=== PATIENT | male | born 1955 | race Caucasian/White ===

== ENCOUNTER 2016-12-14 04:26 | Inpatient (IN) | payer OTHER ==
[~2016-12-14] VITALS: Ht 177.8 cm; Wt 78.0 kg
[2016-12-14] MEDS ORDERED: ATORVASTATIN CA40 M1 PO (09:02)
[2016-12-14] MEDS ORDERED: METFORMIN HCL500 M2 PO (09:03)
[2016-12-14] MEDS ORDERED: JARDIANCE10 M1 PO (09:03)
[2016-12-14] MEDS ORDERED: VICTOZA 2-0.6 MG/0.1 INJ (09:03)
[2016-12-14] MEDS ORDERED: PROAIR HFA8.5 GM INH (09:04)
[2016-12-14] MEDS ORDERED: PLAVIX75 M1 PO (09:04)
--- NOTE | 2016-12-14 14:14 | RADIOLOGY REPORT ---
EXAMINATION: XR TIBIA AND FIBULA, LEFT CLINICAL INFORMATION: Left leg endarterectomy and arteriography performed in operating room. COMPARISON: None TECHNIQUE: Intraoperative fluoroscopic imaging of the left lower extremity was utilized and multiple spot fluoroscopy images are submitted into the electronic picture archive. Fluoroscopy time: 46.8 seconds. Dose: 646.46 mrad. FINDINGS: Please refer to the operative report of Dr. Pendleton regarding the indications for the procedures, intraoperative findings and interventions performed. IMPRESSION: Fluoroscopic imaging support was provided to the operating room.
--- NOTE | 2016-12-14 16:05 | Admission Core Measures ---
Admission Meds I reviewed the following Meds: Current Medications Sig/Jessica Start time Last Medication Dose Stop Time Status Admin Albuterol Sulfate 2 PUF Q4-6 PRN PRN 12/14 1600 AC (Ventolin) Atorvastatin Calcium 40 MG DAILY 12/15 1000 AC (Lipitor) Clopidogrel Bisulfate 75 MG DAILY 12/15 1000 AC (Plavix) Clopidogrel Bisulfate 75 MG ONCE ONE 12/14 1615 AC (Plavix) 12/14 1616 Acute Coronary Syndrome Inclusion Criteria ACS Diagnosis No Inpatient Core Measures LDL Reminder: If No, please order W/I first 24hr of stay Congestive Heart Failure Inclusion Criteria CHF Diagnosis No Cerebrovascular accident Inclusion Criteria CVA/TIA Diagnosis No Inpatient Core Measures Bedside Swallow Eval Reminder: If BSE failed, place ST order Antithrombotic Reminder: Order Antithrombotic Medication by end of day 2 Antithrombotic Reminder: Document Reason Antithrombotic Not ordered by end of day 2 AFIB/Flutter Reminder: If Present, add to problem list AFIB/Flutter Reminder: Order Anticoag Medication for pts with AFIB/Flutter Atherosclerosis Reminder: If Present, add to problem list LDL Reminder: If No, please order W/I first 24hr of stay PT Order Reminder: If No, please order Venous thromboembolism Inpatient Core Measures VTE Risk Factors: Age > 40, Surgery No [facility] VTE prophylaxis d/t No contraindications No VTE Pharm Prophylaxis d/t No contraindications Inclusion Criteria - Per Current guidelines, there needs to be overlap - treatment for the first 5 days of Warfarin therapy. - Parenteral Anticoagulation (IV or SC) needs to be - given along with Warfarin therapy. VTE Diagnosis No VTE Type NONE VTE Confirmed by (Test) NONE Problem List As ranked by this Provider includes Assessment & Plan 1. Peripheral arterial disease HOME MEDS Home Med List Albuterol Sulfate (Proair Hfa) 90 MCG HFA.AER.AD 2 PUF INH Q4-6 PRN PRN ASTHMA (Reported) Atorvastatin Calcium 40 MG TABLET 1 TAB PO DAILY CHOL (Reported) Clopidogrel Bisulfate (Plavix) 75 MG TABLET 1 TAB PO DAILY BLOOD THINNER ( Reported) Empagliflozin (Jardiance) 10 MG TABLET 1 TAB PO DAILY DIABETES (Reported) Liraglutide (Victoza 2-Dion) 0.6 MG/0.1 ML (18 MG/3 ML) PEN.INJCTR 1 INJ D DIABETES (Reported) Metformin HCl (Metformin HCl ER) 500 MG TAB.ER.24 1 TAB PO DAILY DIABETES ( Reported)
--- NOTE | 2016-12-14 16:09 | PN- Vascular Surgery ---
Subjective Subjective: Post op check Awake and alert post op No complaints at this time No pain or nausea Objective Vital Signs and I&Os Intake & Output 12/14 1600 12/14 0812/14 0000 12/13 0812/13 0000 Intake Total Output Total Balance Patient 172 lb Weight Physical Exam: vss, afebrile General: alert and oriented times three Chest: clear anteriorly bilaterally, RRR Abd: soft Ext: warm, no edema, BLE without palpable pulses but 2+ dopplerable signals at DP bilaterally, positive sensate, no calf tenderness, 5/5 JOHNNIE BLE, non dopplerable PT bilaterally Wound: L groin wound dressed, dry Assessment/Plan Assessment/Plan 61 yo male s/p left femoral endarterectomy Discussed with Dr Pendleton Restart plavix today then continue at 75mg po daily bedrest tonight - up ad paul in am Likely home in am pain management insulin sliding scale overnight - will restart oral diabetic meds in am as pt has been npo all day fu labs in am Core Measures/Miscellaneous Venous Thromboembolism VTE Risk Factors: Age > 40, Surgery VTE Contraindications: No Contraindications VTE Diagnosis: No VTE Type: NONE VTE Confirmed by (Test): NONE Beta Flaquito Is Beta Flaquito a Home Med? No Antibiotics Is Patient on Antibiotics? No
[2016-12-14] MEDS ORDERED: PERCOCET 5-3251 EACH PO (16:12)
--- NOTE | 2016-12-14 16:12 | Patient Discharge Instructions ---
Discharge Instructions General Discharge Information You were seen/treated for: peripheral artery disease You had these procedures: left femoral endarterectomy Watch for these problems: temp>101, increased redness or drainage of wounds Do not soak the wound: Yes Other wound care: Keep incision clean and dry, dry dressing change daily Diet Recommended Diet: Diabetic Activity Activity Self Limited: Yes Acute Coronary Syndrome Inclusion Criteria At DC or during hospital stay patient has or had the following: ACS DIAGNOSIS No Discharge Core Measures Meds if any: Prescribed or Continued at Discharge Meds if any: NOT Prescribed or Continued at Discharge Congestive Heart Failure Inclusion Criteria At DC or during hospital stay patient has or had the following: CHF DIAGNOSIS No Discharge Core Measures Meds if any: Prescribed or Continued at Discharge Meds if any: NOT Prescribed or Continued at Discharge Cerebrovascular accident Inclusion Criteria At DC or during hospital stay patient has or had the following: CVA/TIA Diagnosis No Discharge Core Measures Meds if any: Prescribed or Continued at Discharge Meds if any: NOT Prescribed or Continued at Discharge Venous thromboembolism Inclusion Criteria VTE Diagnosis No VTE Type NONE VTE Confirmed by (Test) NONE Discharge Core Measures - Per Current guidelines, there needs to be overlap - treatment for the first 5 days of Warfarin therapy. - If discharged on Warfarin prior to 5 days of - overlap therapy, the patient will need to be - assessed for post discharge needs including - *Post discharge parental anticoagulation - *Warfarin and/or parental anticoagulation education - *Follow up date to check INR post discharge At least 5 days overlap therapy as Inpatient No Meds if any: Prescribed or Continued at Discharge Note: Overlap Therapy is Warfarin and Anticoagulant Meds if any: NOT Prescribed or Continued at Discharge
--- NOTE | 2016-12-14 16:16 | Surgical Discharge Summary ---
Visit Information Visit Dates Admission Date: 12/14/16 Discharge Date: 12/15/16 History of Present Illness Chief Complaint: See H and P Medical History Isolation History: Standard Surgical History Pertinent Surgical History: none (see H and P) Review of Systems: See H and P Hospital Course Course Attending Physician: MAGO APONTE MD Primary Care Physician: ANNE-MARIE PARADA MD Hospital Course: Pt underwent a left femoral endarterectomy on 12/[address] Aponte and was brought to the PACU in stable condition. He remained at bedrest overnight and was able to ambulate in the morning. His pain was well controlled with oral pain medication. He was restarted on plavis on the day of surgery. He was cleared to be discharged home to follow up with DR Aponte. Allergies: Coded Allergies: No Known Allergies (12/14/16) Disposition Summary Disposition Principal Diagnosis: PAD Additional Diagnosis: IDDM Discharge Disposition: hospice - home Discharge Instructions General Discharge Information Code Status: Full Code Patient's Diet: diabetic Patient's Activity: ad paul Follow-Up Instructions/Appts: Call for an appointment to be seen withini two weeks of discharge Medications at Discharge Discharge Medications: Continue taking these medications: Atorvastatin Calcium (Atorvastatin Calcium) 40 MG TABLET 1 Tablet ORAL DAILY Comments: Last Taken:NOT TAKEN IN HOSPITAL Time: Liraglutide (Victoza 2-Dion) 0.6 MG/0.1 ML (18 MG/3 ML) PEN.INJCTR 1 INJECTABLE Every Day Comments: Last Taken:NOT TAKEN IN HOSPITAL Time: Metformin HCl (Metformin HCl ER) 500 MG TAB.ER.24 1 Tablet ORAL DAILY Comments: Last Taken:NOT TAKEN IN HOSPITAL Time: Empagliflozin (Jardiance) 10 MG TABLET 1 Tablet ORAL DAILY Comments: Last Taken:NOT TAKEN IN HOSPITAL Time: Clopidogrel Bisulfate (Plavix) 75 MG TABLET 1 Tablet ORAL DAILY Comments: Last Taken:12/15/16 Time:926 Albuterol Sulfate (Proair Hfa) 90 MCG HFA.AER.AD 2 Puff Inhale through mouth EVERY 4-6 HOURS NEEDED as needed for ASTHMA Comments: Last Taken:NOT TAKEN IN HOSPITAL Time:
--- NOTE | 2016-12-14 17:24 | Operative Report ---
Operative/Inv Procedure Report Surgery Date: 12/14/16 Name of Procedure: Left common femoral endarterectomy with bovine patch angioplasty, left lower extremity angiogram Pre-Operative Diagnosis: Atherosclerotic peripheral arterial disease with claudication of the left leg Post-Operative Diagnosis: Same Estimated Blood Loss: 50ml to 100ml Surgeon/Prevention Specialist: FADI PARSONS,MAGO/GRZEGORZ PARSONS, CELINE (ASST.) Anesthesia: laryngeal mask airway Complications: None Condition: Stable to PACU Operative Indication: 61-year-old male with a history of left lower extremity claudication. This is been increasing in severity and duration. Risks, benefits and alternatives explained to the patient including limb loss and as well as infection of any prosthetics. He decided proceed with intervention. Operative/Procedure Note Note: Patient brought to the operative room and laid supine on the table. Timeout held IN accordance with Garrett palsy. Incision made in a longitudinal direction over the femoral artery. Sharp dissection carried down through the skin and subcutaneous tissue to the artery. It was noted to be hard and friable. The artery was controlled circumferentially with vessel loops. The common femoral, profunda femoris and superficial femoral artery were all controlled. The patient was bolused with 5000 units of heparin. An 11 blade was used to open the artery. A Hatteras elevator was passed in the field. This was used to excise the dense plaque was noted to be in the middle of the common femoral artery. It was excised and passed off the field as specimen. The transected plaque was tacked down distally. The artery was backbled and bled antegrade and flushed. A bovine pericardial patch was then brought into field. It was sewn circumferentially on the anterior surface of the artery with a 60 and 5-0 Prolene suture. It was tacked down. Level interrupted sutures were used for hemostasis. The artery was then flushed. Pulsatile flow was noted into the distal SFA and profunda. A completion angiogram was performed. This demonstrates a patent common femoral and profunda femoris. The SFA is patent. In the midportion of the SFA there is a mild to moderate plaque. The distal SFA is patent. The popliteal artery is patent. There is 2 vessel runoff to the left foot. The wound was then copiously irrigated. It was closed in layers with 20 and 3-0 Vicryl sutures. The skin was then closed with nylon sutures and skin shashi. Hemostasis was augmented with Gelfoam thrombin as well as Surgi-Jeremie. A 4 x 4 and Tegaderm dressing was placed on the wound. Sponge and instrument counts were correct. Patient was transferred to recovery stable, awake and alert.
[2016-12-14 17:50] VITALS: BP 130/70
--- NOTE | 2016-12-14 17:50 | NUR ---
PT ARRIVED TO FLOOR AT 1750 VIA STRETCHER FROM PACU. PT ALERT AND ORIENTED X3. ON RA. LUNGS ARE CLEAR. NO DISTRESS NOTED. VITAL SIGNS: BP: 130/70, P 83, T 97.9, RR 18, AND 95% ON RA. PT INSTRUCTED TO BE ON BEDREST FOR EVENING. URINAL AT BEDSIDE. DRESSING TO L GROIN WITH SCANT BLOODY DRAINAGE. SURGICAL PA ROBBIE MADE AWARE. PER SURGICAL PA, APPLY ICE. ICE APPLIED TO L GROIN. +PULSES VIA DOPPLER. PT C/O PAIN 10/30, MEDICATED WITH TYLENOL PER EMAR. SKIN INTACT. PER PHARMACY CASHIER, PLAVIX 75MG PO GIVEN AT 1610- VERIFIED CHART. PLAVIX ON EMAR TO BE GIVEN- PER SURG URI AVALOS IF PT RECIEVED IN PACU DOES NOT NEED SECOND DOSE. ACCUCHECK 110, DINNER TRAY ORDERED. NOVOLIN COVERAGE ADMINISTERED PER EMAR. #18 TO LH INFUSING NS @ 75ML/HR PER EMAR. PT ORIENTED TO ROOM, CALL ANTONIO & SURROUNDINGS. OFFERS NO COMPLAINTS. WILL CONTINUE TO MONITOR.
[2016-12-14 20:01] VITALS: BP 100/54
[2016-12-14 22:34] VITALS: BP 112/60
[2016-12-15 00:07] VITALS: BP 122/68
[2016-12-15 04:18] VITALS: BP 128/80
--- NOTE | 2016-12-15 07:48 | PN- Vascular Surgery ---
Subjective Subjective: The patient was seen this morning postoperatively day 1. He reports that his pain is is adequate control and has no other complaints the current time. He is eager to get out of bed and then be discharged later this morning. Objective Vital Signs and I&Os Vital Signs Date Time Temp Pulse Resp B/P B/P Pulse O2 O2 Flow FiO2 Mean Ox Delivery Rate 12/158 98.6 81 18 128/80 94 Room Air 12/15 0007 98.4 73 18 122/68 94 Room Air 12/14 2234 97.7 90 18 112/60 95 Room Air 12/14 2000 98.1 83 20 100/54 94 Room Air 12/14 1750 97.9 83 18 130/70 95 Room Air Intake & Output 12/15 0812/15 0000 12/14 1600 12/14 0812/14 0000 12/13 1600 Intake Total 1300 Output Total 750 900 Balance -750 400 Intake, IV 600 Intake, Oral 700 Number 0 Bowel Movements Output, Urine 750 900 Patient 172 lb 172 lb Weight Physical Exam: Gen.: Alert and in no obvious distress Skin: Warm and dry Extremities: Bilateral lower extremities are warm without calf tenderness or significant edema. Gross motor and sensory are intact. There dopplerable distal pulses at the dorsalis pedis bilaterally Left groin surgical incision is slightly blood-tinged. Otherwise intact. There is minimal surrounding edema and no signs of significant hematoma. Assessment/Plan Assessment/Plan Assessment: 61-year-old male status post left femoral endarterectomy postoperative day #1. The patient is progressing as expected, his pain is under adequate control, and his incision looks like it's healing well. Plan: Hep-Lock IV fluids Follow-up morning laboratory studies GI and DVT prophylaxis Out of bed ambulate Tight glycemic control Discharge home later today Core Measures/Miscellaneous Venous Thromboembolism VTE Risk Factors: Age > 40, Surgery VTE Contraindications: No Contraindications VTE Diagnosis: No VTE Type: NONE VTE Confirmed by (Test): NONE Beta Flaquito Is Beta Flaquito a Home Med? No Antibiotics Is Patient on Antibiotics? No
[2016-12-15 08:06] LABS: ABSOLUTE BASOPHIL COUNT 0 /CUMM (0.0-0.2); ABSOLUTE EOSINOPHIL COUNT 0.1 /CUMM (0.0-0.7); ABSOLUTE GRANULOCYTE CT 5.7 /CUMM (1.4-6.5); ABSOLUTE MONOCYTE COUNT 0.8 /CUMM (0.10-0.60); BASOPHIL % 0.2 % (0.0-2.0); EOSINOPHIL % 0.9 % (0-5); GRANULOCYTE % 74.6 % (42.2-75.2); MEAN CORPUSCULAR HGB 31.2 PG (27.0-31.0); MEAN CORPUSCULAR HGB CONC 33.6 G/DL (33.0-37.0); MEAN CORPUSCULAR VOLUME 92.9 FL (80.0-94.0); PLATELET COUNT 131 /CUMM (130-400); RBC DISTRIBUTION WIDTH 13.5 % (11.5-14.5); RED BLOOD CELL CT 4.42 /CUMM (4.70-6.10); WHITE BLOOD CELL COUNT 7.7 /CUMM (4.8-10.8)
== END 2016-12-15 12:54 | DRG 254 ==
LOC: SDA 04:26 → 2NA 04:26 → ENRESERV 16:10 → 2NA 17:41 → ENPENDDIS 12-15 07:48 → 2NA 12-15 12:54
PROVIDERS: Physician Assistant Surgical; ADMIT Surgery Vascular Surgery
PROC: 04CL0ZZ Extirpation of Matter from Left Femoral Artery, Open Approach (ICD-10-PCS; principal; 2016-12-14)
PROC: B41GZZZ Fluoroscopy of Left Lower Extremity Arteries (ICD-10-PCS; principal; 2016-12-14)
PROC: 04UL0KZ Supplement Left Femoral Artery with Nonautologous Tissue Substitute, Open Approach (ICD-10-PCS; principal; 2016-12-14)
DX: I70.212 Atherosclerosis of native arteries of extremities with intermittent claudication, left leg (principal); I10 Essential (primary) hypertension; I25.10 Atherosclerotic heart disease of native coronary artery without angina pectoris; Z95.1 Presence of aortocoronary bypass graft; E78.5 Hyperlipidemia, unspecified; E11.9 Type 2 diabetes mellitus without complications; Z79.84 Long term (current) use of oral hypoglycemic drugs; Z87.891 Personal history of nicotine dependence
CPT/HCPCS: 2NASP; 73590-LT; 82436; 88304; J1644; J1815; J2405; J3490